=== PATIENT | male | born 1940 | race Caucasian/White ===

== ENCOUNTER 2024-06-05 10:29 | Outpatient (NON) | payer MEDICARE, SELFPAY ==
[2024-06-05 11:48] LABS: Anion Gap 12 mmol/L (4-12); Blood Urea Nitrogen 72 mg/dL (7-18); Calcium 8.7 mg/dL (8.5-10.1); Carbon Dioxide 36 mmol/L (21-32); Chloride 98 mmol/L (98-108); Cholesterol 68 mg/dL (0-200); Estimated Glomerular Filt Rate 28; Glucose 72 mg/dL (70-99); HDL Direct 22 mg/dL (40-60); LDL Cholesterol Calculated 34 mg/dL (<130); LDL Cholesterol Direct 37 mg/dL (0-130); Osmolality Calculated 322 mOsm/kg (285-295); Potassium 4.8 mmol/L (3.5-5.1); Sodium 146 mmol/L (136-145); Triglycerides 61 mg/dL (0-150)
--- OUTSIDE RECORDS SUMMARY | 2024-06-05 11:54 | XMS_ITS | Clinical Summary ---
Author Organization [facility] Address [address] [place] [address] Care Team Providers Care Autistic Teacher Name Role Phone Kartik Simons MD Primary Care Provider +- [phone] Saray Meneses ANP-BC Unavailable + Allergies No known active allergies Medications metoprolol succinate ER 25 MG 24 hr tablet Take 1 tablet (25 mg total) by mouth daily. 5 Active lovastatin 10 MG tablet Take 1 tablet (10 mg total) by mouth daily. Active metFORMIN 500 MG tablet Take 1 tablet (500 mg total) by mouth 2 (two) times daily with meals. Active albuterol sulfate HFA 108 (90 Base) MCG/ACT inhaler Inhale 2 puffs into the lungs every 4 (four) hours as needed for Wheezing. Active ipratropium-al buterol 20-100 MCG/ACT inhaler Inhale 1 puff into the lungs 4 (four) times daily. Please provide assembled. 4 g 2 Active potassium chloride CR 20 MEQ Tab CR tablet Take 2 tablets (40 mEq total) by mouth daily. Active traZODone (DESYREL) 50 MG tablet Take 1 tablet (50 mg total) by mouth nightly at bedtime. Active budesonide (PULMICORT) 0.5 MG/2ML nebulizer solution Take 2 mLs (0.5 mg total) by nebulization 2 (two) times daily. Active Simethicone ([employer] GAS RELIEF) 125 MG Cap Take 1 tablet by mouth 4 (four) times daily as needed (gas). Active furosemide (LASIX) 40 MG tablet Take 3 tablets (120 mg total) by mouth daily. 4 Active aspirin EC (ECOTRIN) 81 MG tablet Take 1 tablet (81 mg total) by mouth daily. Active hydrOXYzine (ATARAX) 25 MG tabletIndicati ons:Agitation associated with Dementia Take 1 tablet (25 mg total) by mouth every 8 (eight) hours as needed for Itching. Indications: Agitation associated with Dementia 30 tablet 5 05/16/19 25 polyethylene glycol (GLYCOLAX) packetIndicati ons:Constipati on Take 240 mLs (17 g total) by mouth daily as needed for Constipation. Indications: Constipation Dissolve powder in 240 mL water 14 each 5 05/20/19 25 Active Problems Problem Noted Date Diagnosed Date Hyperkalemia 04/28/2024 Dementia ([facility]) 04/28/2024 Chronic anemia 01/20/2024 Chronic respiratory failure ([facility]) Iron deficiency 01/18/2024 CHF (congestive heart failure) ([facility]) 01/16/2024 Anemia due to GI blood loss 01/16/2024 CATHERINE (obstructive sleep apnea) 02/15/2022 Mild concentric left ventricular hypertrophy (LV H) 02/15/2022 CHF (congestive heart failure) ([facility]) 09/16/2021 COPD exacerbation ([facility]) 08/16/2021 Pneumonia 05/25/2019 Rectal bleed 05/13/2019 Obese body habitus A-fib ([facility]) HLD (hyperlipidemia) HTN (hypertension) Resolved Problems Problem Noted Date Diagnosed Date Resolved Date Back pain 05/27/2019 05/29/2019 Overview (05/27/2019): He requests help with chronic low back pain Hypotension 05/16/2019 05/17/2019 Anemia due to GI blood loss 05/14/2019 01/20/2024 CAP (community acquired pneumonia) 05/14/2019 05/29/2019 CHF exacerbation ([facility]) 05/29/2019 Encounters Date Type Department Care Team Description 05/14/2024 10:42 AM COLLEGE TUTOR - 05/14/2024 11:59 PM COLLEGE TUTOR Hospital Encounter [facility] [address] [place] [address] Cindy Godoy PA Discharge Disposition: Home or Self Care (Routine Discharge) 05/14/2024 10:40 AM COLLEGE TUTOR - 05/14/2024 10:41 AM COLLEGE TUTOR Hospital Encounter [facility] [address] [place] [address] Cindy Godoy PA Discharge Disposition: Home or Self Care (Routine Discharge) 05/14/2024 Orders Only [facility] [address] [place] [address] Cindy Godoy PA 05/14/2024 Travel 05/01/2024 Travel 04/23/2024 Travel 04/21/2024 6:50 PM COLLEGE TUTOR - 05/06/2024 10:20 AM COLLEGE TUTOR Hospital Encounter [facility] [address] [place] [address] Cristine Wasserman MD Ishmael, Timothy L, MD Cochran, Apolinar El MD Flu Like Symptoms Discharge Disposition: [facility] Facility 04/21/2024 Travel from Last 3 Months Immunizations Name Administration Dates Next Due Afluria 36 MONTHS+ (Prefille d Syringe IIV4) 05/29/2019,05/14/2019(Deferred: Patient/family declined) Family History Medical History Relation Comments Diabetes Father Heart Disease Mother Relation Status Comments Father Mother Social History Tobacco Use Types Packs/Day Years Used Date Smoking Tobacco: Former Smokeless Tobacco: Former Chew Quit: 04/2021 Tobacco Cessation:Counseling Given: Not Answered Alcohol Use Standard Drinks/Week Comments No 0 (1 standard drink = 0.6 oz pur e alcohol) [facility] Utilities Answer Date Recorded In the past 12 months has e [employer], gas, oil, or water [employer] threatened to shut off services in your home? No 04/21/2024 Humiliation, Afraid, Rape, and Kick questionnair e Answer Date Recorded Within the last year, have y ou been afraid of your partner or ex-partner? No 04/21/2024 Within the last year, have y ou been humiliated or emotionally abused in other ways by your partner or ex-partner? No Within the last year, have y ou been kicked, hit, slapped, or otherwise physically hurt by your partner or ex-partner? No 04/21/2024 Within the last year, have y ou been raped or forced to have any kind of sexual activity by your partner or ex-partner? No 04/21/2024 AUDIT-C Answer Date Recorded Frequency of Alcohol Consumption Never 05/13/2019 Average Number of Drinks Not on file 020 Frequency of Binge Drinking Not on file 04/25 Overall Financial Resource Strain (CARDIA) Answe r Date Recorded How hard is it for you to pa y for the very basics like food, housing, medical care, and heating? Not hard at all 04/21/2024 Hunger Vital Sign Answer Date Recorded Within the past 12 months, y ou worried that your food would run out before you got the money to buy more. Never true 04/21/20 24 Within the past 12 months, t he food you bought just didn't last and you didn't have money to get more. Never true 04/21/2024 PRAPARE - Transportation Answer Date Re corded In the past 12 months, has l ack of transportation kept you from medical appointments or from getting medications? No 03/26 In the past 12 months, has l ack of transportation kept you from meetings, work, or from getting things needed for daily living? No 04/21/2024 Housing Stability Vital Sign Answer Eber e Recorded In the last 12 months, was t here a time when you were not able to pay the mortgage or rent on time? No 04/21/2024 In the past 12 months, how m any times have you moved where you were living? 1 04/21/2024 At any time in the past 12 m [facility], were you homeless or living in a [place] [facility] [place] facility (including now)? No 04/21/2024 Sex and Gender Information Value Date Recorded Sex Assigned at Male 05/14/2024 10:39 AM COLLEGE TUTOR Legal Sex Male 6:05 PM CDT Gender Identity Male 05/25/2019 4:09 PM COLLEGE TUTOR Sexual Orientation Not on file Last Filed Vital Signs Vital Sign Reading Time Taken Comments Blood Pressure 114/65 05/06/2024 8:15 AM COLLEGE TUTOR Pulse 79 05/06/2024 8:15 AM COLLEGE TUTOR Temperature 36.2 C (97.2 F) 05/06/2024 5:18 AM COLLEGE TUTOR Respiratory Rate 20 05/06/2024 5:18 AM COLLEGE TUTOR Oxygen Saturation 97% 05/06/2024 5:18 AM COLLEGE TUTOR Inhaled Oxygen Concentration - - Weight 126.1 kg (278 lb) 05/06/2024 5:18 AM COLLEGE TUTOR Height 175.3 cm (5' 9 ) 04/21/2024 6:53 PM COLLEGE TUTOR Body Mass Index 41.05 04/21/2024 6:53 PM COLLEGE TUTOR Plan of Treatment Upcoming Encounters Date Type Department Care Team (Late st Contact Info) Description 06/08/2024 10:00 AM COLLEGE TUTOR Appointment [facility] [address] [place] [address] Cindy Godoy PA [facility] [place] [address] Health Maintenance Due Date Last Done Comments Annual Medicare Wellness Visit 09/01/2004 RSV Immunization or 60+ Years (1 - 1-dose 75+ series) 09/01/2014 DTaP, Tdap and Td Vaccines (1 - Tdap) 09/09/2016 09/08/2016 Pneumococcal Vaccine: 65+ Years (2 of 2 - PCV) 05/13/2018 05/13/2017 Zoster Vaccines (2 of 2) 01/25/2022 11/30/2021 COVID-19 Vaccine ( season) 2023 10/12/2021, 07/24/2020, 06/26/2020 Influenza Adult (#1) 2024 02/02/2021, 03/11/2020, 05/29/2019, Additional history exists Meningococcal B Vaccine Aged Out No l onger eligible based on patient's age to complete this topic Meningococcal Vaccine Aged Out No mariana terrance eligible based on patient's age to complete this topic RSV Immunizations Under 20 Months Aged Out No longer eligible based on patient's age to complete this topic Goals Goal Patient Goal Type Associated Problems Recent Progress Patient-Stated? Author Safety Patient/family will have appropriate support at home upon discharge General Keisha Guajardo, SCHOOL SPEECH THERAPIST Procedures Procedure Name Priority Date/Time Associated Diagnosis Comments CBC W/DIFF AUTOMATED STAT 05/14/2024 11:30 AM COLLEGE TUTOR Swelling of both lower extremities BASIC METABOLIC PANEL STAT 05/14/2024 11:30 AM COLLEGE TUTOR Swelling of both lower extremities XR CHEST PA+LAT STAT 05/14/2024 11:00 AM COLLEGE TUTOR Pneumonia POCT GLUCOSE - LOYA DOCKED DEVICE Routine 05/06/2024 5:02 AM COLLEGE TUTOR COMPREHENSIVE METABOLIC PANEL Routine 05/06/2024 4:44 AM COLLEGE TUTOR CBC W/DIFF AUTOMATED Routine 05/06/2024 4:44 AM COLLEGE TUTOR POCT GLUCOSE - LOYA DOCKED DEVICE Routine 05/05/2024 4:33 PM COLLEGE TUTOR COMPREHENSIVE METABOLIC PANEL Routine 05/05/2024 4:34 AM COLLEGE TUTOR CBC W/DIFF AUTOMATED Routine 05/05/2024 4:34 AM COLLEGE TUTOR POCT GLUCOSE - LOYA DOCKED DEVICE Routine 05/05/2024 4:24 AM COLLEGE TUTOR POCT GLUCOSE - LOYA DOCKED DEVICE Routine 05/04/2024 4:42 PM COLLEGE TUTOR COMPREHENSIVE METABOLIC PANEL Routine 05/04/2024 5:26 AM COLLEGE TUTOR CBC W/DIFF AUTOMATED Routine 05/04/2024 5:26 AM COLLEGE TUTOR POCT GLUCOSE - LOYA DOCKED DEVICE Routine 05/03/2024 5:08 PM COLLEGE TUTOR POCT GLUCOSE - LOYA DOCKED DEVICE Routine 05/03/2024 6:05 AM COLLEGE TUTOR COMPREHENSIVE METABOLIC PANEL Routine 05/03/2024 5:17 AM COLLEGE TUTOR CBC W/DIFF AUTOMATED Routine 05/03/2024 5:17 AM COLLEGE TUTOR POCT GLUCOSE - LOYA DOCKED DEVICE Routine 05/02/2024 4:37 PM COLLEGE TUTOR COMPREHENSIVE METABOLIC PANEL Routine 05/02/2024 5:00 AM COLLEGE TUTOR CBC W/DIFF AUTOMATED Routine 05/02/2024 5:00 AM COLLEGE TUTOR POCT GLUCOSE - LOYA DOCKED DEVICE Routine 05/01/2024 4:15 PM COLLEGE TUTOR XR SPEECH SWALLOW SFL ONLY Today 05/01/2024 2:00 PM COLLEGE TUTOR COMPREHENSIVE METABOLIC PANEL Routine 05/01/2024 5:28 AM COLLEGE TUTOR CBC W/DIFF AUTOMATED Routine 05/01/2024 5:28 AM COLLEGE TUTOR POCT GLUCOSE - LOYA DOCKED DEVICE Routine 04/30/2024 4:31 PM COLLEGE TUTOR POCT GLUCOSE - LOYA DOCKED DEVICE Routine 04/30/2024 4:37 AM COLLEGE TUTOR COMPREHENSIVE METABOLIC PANEL Routine 04/30/2024 4:15 AM COLLEGE TUTOR CBC W/DIFF AUTOMATED Routine 04/30/2024 4:15 AM COLLEGE TUTOR POCT GLUCOSE - LOYA DOCKED DEVICE Routine 04/29/2024 4:48 PM COLLEGE TUTOR COMPREHENSIVE METABOLIC PANEL Routine 04/29/2024 4:45 AM COLLEGE TUTOR CBC W/DIFF AUTOMATED Routine 04/29/2024 4:45 AM COLLEGE TUTOR POCT GLUCOSE - LOYA DOCKED DEVICE Routine 04/29/2024 4:40 AM COLLEGE TUTOR POCT GLUCOSE - LOYA DOCKED DEVICE Routine 04/28/2024 4:[address] HEAD WO CON Today 04/28/2024 9:42 AM COLLEGE TUTOR COMPREHENSIVE METABOLIC PANEL Routine 04/28/2024 4:40 AM COLLEGE TUTOR CBC W/DIFF AUTOMATED Routine 04/28/2024 4:40 AM COLLEGE TUTOR POCT GLUCOSE - LOYA DOCKED DEVICE Routine 04/27/2024 4:55 PM COLLEGE TUTOR XR CHEST PA+LAT STAT 04/27/2024 9:34 AM COLLEGE TUTOR COMPREHENSIVE METABOLIC PANEL STAT 04/27/2024 8:49 AM COLLEGE TUTOR CBC W/DIFF AUTOMATED STAT 04/27/2024 8:49 AM COLLEGE TUTOR POCT GLUCOSE - LOYA DOCKED DEVICE Routine 04/27/2024 5:54 AM COLLEGE TUTOR POCT GLUCOSE - LOYA DOCKED DEVICE Routine 04/26/2024 4:19 PM COLLEGE TUTOR POCT GLUCOSE - LOYA DOCKED DEVICE Routine 04/25/2024 4:10 PM COLLEGE TUTOR COMPREHENSIVE METABOLIC PANEL Routine 04/25/2024 8:35 AM COLLEGE TUTOR CBC W/DIFF AUTOMATED Routine 04/25/2024 8:35 AM COLLEGE TUTOR POCT GLUCOSE - LOYA DOCKED DEVICE Routine 04/25/2024 8:09 AM COLLEGE TUTOR COMPREHENSIVE METABOLIC PANEL Routine 04/24/2024 5:14 AM COLLEGE TUTOR CBC W/DIFF AUTOMATED Routine 04/24/2024 5:14 AM COLLEGE TUTOR POCT GLUCOSE - LOYA DOCKED DEVICE Routine 04/23/2024 4:31 PM COLLEGE TUTOR COMPREHENSIVE METABOLIC PANEL Routine 04/23/2024 4:20 AM COLLEGE TUTOR CBC W/DIFF AUTOMATED Routine 04/23/2024 4:20 AM COLLEGE TUTOR POCT GLUCOSE - LOYA DOCKED DEVICE Routine 04/22/2024 4:[address] HEAD WO CON Today 04/22/2024 3:46 PM COLLEGE TUTOR POCT GLUCOSE - LOYA DOCKED DEVICE Routine 04/22/2024 2:[address] CHEST WO CON Today 04/22/2024 11:45 AM COLLEGE TUTOR CBC W/DIFF AUTOMATED Routine 04/22/2024 8:16 AM COLLEGE TUTOR COMPREHENSIVE METABOLIC PANEL Routine 04/22/2024 8:16 AM COLLEGE TUTOR LACTIC ACID W REFLEX (SEPSIS) TIMED 04/21/2024 9:15 PM COLLEGE TUTOR XR CHEST PORTABLE STAT 04/21/2024 7:2 9 PM COLLEGE TUTOR ECG 12-LEAD Routine 04/21/2024 7:24 PM COLLEGE TUTOR CULTURE, BACTERIA, BLOOD STAT 04/21/2024 7:10 PM COLLEGE TUTOR PRO-BRAIN NATRIURETIC PEPTIDE STAT 04/21/2024 7:10 PM COLLEGE TUTOR LACTIC ACID W REFLEX (SEPSIS) STAT 04/21/2024 7:10 PM COLLEGE TUTOR TROPONIN, QUANT STAT 04/21/2024 7:10 PM COLLEGE TUTOR COMPREHENSIVE METABOLIC PANEL STAT 04/21/2024 7:10 PM COLLEGE TUTOR CBC W/DIFF AUTOMATED STAT 04/21/2024 7:10 PM COLLEGE TUTOR INFLUENZA A & B STAT 04/21/2024 7:05 PM COLLEGE TUTOR CORONAVIRUS (COVID-19) ANTIGEN STAT 04/21/2024 7:05 PM COLLEGE TUTOR from Last 3 Months Results * (ABNORMAL) BASIC METABOLIC PANEL (05/14/2024 11:30 AM COLLEGE TUTOR) SODIUM S/P/B 141 136 - 145 MMOL/L 05/14/2024 11:45 AM [facility] POTASSIUM S/P/B 5.0 3.5 - 5.1 MMOL/L 05/14/2024 11:45 AM [facility] CHLORIDE S/P/B 101 98 - 107 MMOL/L 05/14/2024 11:45 AM [facility] CO2 32.4(H) 21.0 - 32.0 MMOL/L 05/14/2024 11:45 AM [facility] GLUCOSE 98 70 - 99 MG/DL 05/14/2024 11:45 AM [facility] Comment: FASTING GLUCOSE 100 TO 125 MG/DL IS CONSISTENT WITH IMPAIRED FASTING GLUCOSE. FASTING GLUCOSE >125 MG/DL IS CONSISTENT WITH DIABETES. RANDOM GLUCOSE >200 MG/DL WITH HYPERGLYCEMIC SYMPTOMS IS CONSISTENT WITH DIABETES. PER ADA GUIDELINES BUN 31(H) 6 - 24 MG/DL 05/14/2024 11:45 AM [facility] CREATININE S/P/B 1.39(H) 0.70 - 1.30 MG/DL 05/14/2024 11:45 AM [facility] CALCIUM S/P/B 8.4 8.4 - 10.5 MG/DL 05/14/2024 11:45 AM [facility] ANION GAP 7.6 5.0 - 15.0 MMOL/L 05/14/2024 11:45 AM [facility] OSMOLALITY (CALC) 299 MOSM/KG 025 11:45 AM [facility] Comment:REFERENCE RANGE NOT ESTABLISHED GFR ESTIMATE 50(L) >89 ML/MIN/1. 73 M2 05/14/2024 11:45 AM [facility] GFR NOTES GFR REFERENCE S: 05/14/2024 11:45 AM [facility] Comment: THE ESTIMATED GFR IS CALCULATED USING THE 2020 CKD-EPI EQUATION. THE FOLLOWING CATEGORIES FOR GRADING RENAL FUNCTION ARE RECOMMENDED BY THE INTERNATIONAL SOCIETY OF NEPHROLOGY (KDIGO 2012 CLINICAL PRACTICE GUIDELINE). G1,NORMAL OR HIGH: >89 ml/min/1.73 m2 G2,MILDLY DECREASED: 60-89 ml/min/1.73 m2 G3A,MILDLY TO MODERATELY DECREASED: 45-59 ml/min/1.73 m2 G3B,MODERATELY TO SEVERELY DECREASED: 30-44 ml/min/1.73 m2 G4,SEVERELY DECREASED: 15-29 ml/min/1.73 m2 G5,KIDNEY FAILURE: <15 ml/min/1.73 m2 05/14/2024 11:3 0 AM COLLEGE TUTOR [facility] S[facility]ERS [facility] Final Resu lt [facility] [address] [place] [address], * (ABNORMAL) CBC W/DIFF AUTOMATED (05/14/2024 11:30 AM COLLEGE TUTOR) Only the most recent of16 resultswithin the time period is included. WBC 8.77 4.00 - 10.80 x10'3/uL 05/14/2024 11:52 AM COLLEGE TUTOR [facility] RBC 4.72 4.50 - 6.10 x10'6/uL 05/14/2024 11:52 AM COLLEGE TUTOR [facility] HGB 10.4(L) 13.0 - 18.0 G/DL 05/14/2024 11:52 AM COLLEGE TUTOR [facility] HCT 36.4(L) 37.0 - 52.0 % 05/14/2024 11:52 AM COLLEGE TUTOR [facility] MCV 77.1(L) 78.0 - 100.0 FL 05/14/2024 11:52 AM COLLEGE TUTOR [facility] MCH 22.0(L) 27.0 - 31.0 PG 05/14/2024 11:52 AM COLLEGE TUTOR [facility] MCHC 28.6(L) 33.0 - 36.0 G/DL 05/14/2024 11:52 AM [facility] RDW 22.5(H) 11.5 - 14.5 % 05/14/2024 11:52 AM [facility] PLT 249 150 - 350 x10'3/uL 05/14/2024 11:52 AM [facility] MPV 10.1 7.4 - 10.4 FL 05/14/2024 11:52 AM [facility] CBC COMMENT NORMAL REFERENCE RANGE NOT ESTABLISHED FOR THE PROPORTIONAL LEUKOCYTE DIFFERENTIAL. 05/14/2024 11:52 AM [facility] NEUTROPHILS % 67.4 % 05/14/2024 12:12 PM [facility] LYMPHOCYTES % 16.6 % 05/14/2024 12:12 PM [facility] MONOCYTES % 11.4 % 05/14/2024 12:12 PM [facility] EOSINOPHILS % 3.6 % 05/14/2024 12:12 PM [facility] BASOPHILS % 0.7 % 05/14/2024 12:12 PM [facility] IMMATURE GRANS % 0.3 % 05/14/19 12:12 PM [facility] NRBC % 0.0 % 05/14/2024 12:12 PM [facility] ABS. NEUTROPHILS 5.90 1.60 - 8.30 x10'3/uL 05/14/2024 12:12 PM [facility] ABS. LYMPHOCYTES 1.46 0.80 - 4.70 x10'3/uL 05/14/2024 12:12 PM [facility] ABS. MONOCYTES 1.00 0.00 - 1.50 x10'3/uL 05/14/2024 12:12 PM [facility] ABS. EOSINOPHILS 0.32 0.00 - 0.40 x10'3/uL 05/14/2024 12:12 PM [facility] ABS. BASOPHILS 0.06 0.00 - 0.20 x10'3/uL 05/14/2024 12:12 PM [facility] ABS. IMMATURE GRANULOCYTES 0.03 0.00 - 0.03 x10'3/uL 05/14/2024 12:12 PM COLLEGE TUTOR [facility] ABS. NUCLEATED RBC'S 0.00 0.00 - 0.01 x10'3/uL 05/14/2024 12:12 PM COLLEGE TUTOR [facility] PLT MORPH. NORMAL 05/14/2024 12:12 PM COLLEGE TUTOR [facility] RBC MORPHOLOGY 2+ 05/14/2024 12:12 PM COLLEGE TUTOR [facility] Comment: ANISOCYTOSIS 1+ HYPOCHROMASIA 1+ POIKILOCYTOSIS 05/14/2024 11:3 0 AM COLLEGE TUTOR us Cindy Godoy PA LABORATORY Final Resu lt [facility] [address] [facility] [place] [address], * XR CHEST PA+LAT (05/14/2024 11:00 AM COLLEGE TUTOR) Only the most recent of2 resultswithin the time period is included. Anatomical Region Laterality Modality Chest Radiographic Riri ging 05/14/2024 11:0 2 AM COLLEGE TUTOR Impressions 05/14/2024 11:11 AM COLLEGE TUTOR IMPRESSION: Stable chest. Ordered By: CINDY GODOY Interpreted By: Brant Gamez MD, 05/14/2024 11:02 AM Narrative 05/14/2024 11:11 AM COLLEGE TUTOR [facility] [address] [place] [address] Examination: Two-view chest Exam time: 1038 hours. Clinical history: Follow-up of abnormal chest x-ray. Comparison: 04/27/2024; CT of the chest, 04/22/2024. Technique: AP and lateral views Findings: Allowing for differences in projection and rotation, the cardiomediastinal silhouette is stable. The heart remains enlarged. Pulmonary vascularity appears within normal limits. Retrocardiac left lower lobe infiltrate and masslike opacity in the right upper lobe are not appreciably changed once technical differences are taken into account. There is no gross consolidation. No significant pleural effusion. The bony thorax is stable. Procedure Note Brant Gamez MD - 05/14/[address] [place] [address] Examination: Two-view chest Exam time: 1038 hours. Clinical history: Follow-up of abnormal chest x-ray. Comparison: 04/27/2024; CT of the chest, 04/22/2024. Technique: AP and lateral views Findings: Allowing for differences in projection and rotation, thecardiomediastinal silhouette is stable. The heart remains enlarged.Pulmonary vascularity appears within normal limits. Retrocardiac leftlower lobe infiltrate and masslike opacity in the right upper lobe are notappreciably changed once technical differences are taken into account.There is no gross consolidation. No significant pleural effusion. The bonythorax is stable. IMPRESSION: Stable chest. Ordered By: CINDY GODOY Interpreted By: Brant Gamez MD, 05/14/2024 11:02 AM Cindy Godoy [facility] Final Resu lt * POCT glucose (05/06/2024 5:02 AM COLLEGE TUTOR) Only the most recent of21 resultswithin the time period is included. GLUCOSE POC 92 70 - 99 MG/DL 05/06/2024 5:04 AM COLLEGE TUTOR [facility] Comment:Treatment Given 05/06/2024 5:02 AM COLLEGE TUTOR Apolinar Landis MD POCT ORDERABLES - DEVICE Karly l Result [facility] [address] [place] [address], * (ABNORMAL) COMPREHENSIVE METABOLIC PANEL (05/06/2024 4:44 AM COLLEGE TUTOR) Only the most recent of15 resultswithin the time period is included. SODIUM S/P/B 144 136 - 145 MMOL/L 05/06/2024 5:26 AM [facility] POTASSIUM S/P/B 3.3(L) 3.5 - 5.1 MMOL/L 05/06/2024 5:26 AM [facility] CHLORIDE S/P/B 104 98 - 107 MMOL/L 05/06/2024 5:26 AM [facility] CO2 31.7 21.0 - 32.0 MMOL/L 05/06/2024 5:26 AM [facility] GLUCOSE 75 70 - 99 MG/DL 05/06/2024 5:26 AM [facility] Comment: FASTING GLUCOSE 100 TO 125 MG/DL IS CONSISTENT WITH IMPAIRED FASTING GLUCOSE. FASTING GLUCOSE >125 MG/DL IS CONSISTENT WITH DIABETES. RANDOM GLUCOSE >200 MG/DL WITH HYPERGLYCEMIC SYMPTOMS IS CONSISTENT WITH DIABETES. PER ADA GUIDELINES BUN 26(H) 6 - 24 MG/DL 05/06/2024 5:26 AM [facility] CREATININE S/P/B 1.11 0.70 - 1.30 MG/DL 05/06/2024 5:26 AM [facility] CALCIUM S/P/B 8.4 8.4 - 10.5 MG/DL 05/06/2024 5:26 AM [facility] BILIRUBIN TOTAL S/P/B 1.2(H) 0.2 - 1.0 MG/DL 05/06/2024 5:26 AM [facility] Comment: THIS ASSAY IS NOT RECOMMENDED FOR PATIENTS UNDERGOING TREATMENT WITH ELTROMBOPAG DUE TO THE POTENTIAL FOR FALSELY ELEVATED RESULTS. ALKALINE PHOSPHATASE S/P/B 124(H) 45 - 115 U/L 05/06/2024 5:26 AM [facility] AST 15 15 - 37 U/L 05/06/2024 5:26 AM [facility] ALT 13(L) 16 - 63 U/L 05/06/2024 5:26 AM [facility] TOTAL PROTEIN S/P/B 6.5 6.4 - 8.2 G/DL 05/06/2024 5:26 AM [facility] ALBUMIN S/P/B 2.6(L) 3.4 - 5.0 G/DL 05/06/2024 5:26 AM [employer] [facility] ANION GAP 8.3 5.0 - 15.0 MMOL/L 05/06/2024 5:26 AM [facility] OSMOLALITY (CALC) 301 MOSM/KG 025 5:26 AM [facility] Comment:REFERENCE RANGE NOT ESTABLISHED GFR ESTIMATE 65(L) >89 ML/MIN/1. 73 M2 05/06/2024 5:26 AM [facility] GFR NOTES GFR REFERENCE S: 05/06/2024 5:26 AM [facility] Comment: THE ESTIMATED GFR IS CALCULATED USING THE 2020 CKD-EPI EQUATION. THE FOLLOWING CATEGORIES FOR GRADING RENAL FUNCTION ARE RECOMMENDED BY THE [employer] OF NEPHROLOG[employer] (KDIGO 2012 CLINICAL PRACTICE GUIDELINE). G1,NORMAL OR HIGH: >89 ml/min/1.73 m2 G2,MILDLY DECREASED: 60-89 ml/min/1.73 m2 G3A,MILDLY TO MODERATELY DECREASED: 45-59 ml/min/1.73 m2 G3B,MODERATELY TO SEVERELY DECREASED: 30-44 ml/min/1.73 m2 G4,SEVERELY DECREASED: 15-29 ml/min/1.73 m2 G5,KIDNEY FAILURE: <15 ml/min/1.73 m2 05/06/2024 4:44 AM [employer] Piyush Ramirez NP LABORATORY Final Result [facility] [address] [place] [address], * XR SPEECH SWALLOW SFL ONLY (05/01/2024 2:00 PM [employer]) Anatomical Region Laterality Modality NA Radiographic Riri ging, Radiographic Imaging 05/01/2024 2:08 PM COLLEGE TUTOR Impressions 05/01/2024 2:13 PM COLLEGE TUTOR IMPRESSION: Swallowing dysfunction as described. Please reference the speech pathologist report for complete details. Ordered By: PIYUSH RAMIREZ Interpreted By: Brant Gamez MD, 05/01/2024 2:08 PM Narrative 05/01/2024 2:13 PM COLLEGE TUTOR [address] [place] [address] Examination: Video esophagogram. Exam time: 1350 hours. Clinical history: Dysphagia. Comparison: None. Technique: Fluoroscopic monitoring at the direction of the speech pathologist. 2.9 minutes of fluoroscopy time was used. Seven cine series were captured for review. Findings: The patient was offered liquids, paste, MM5 and solids sequentially at the direction of the speech pathologist. No nasopharyngeal reflux was observed. Swallowing of liquids proceeded rapidly without incident. With paste and MM5 consistencies there was some delay in triggering the swallow with premature spillage to the vallecula. Once triggered, the swallow proceeded rapidly and without incident. With solids, there was difficulty with bolus control and formation and triggering of the swallow. The patient requested and received thin liquids to serve as a wash. While rapidly swallowing large boluses of the thin liquids, aspiration was observed which triggered a prompt cough reflex. Procedure Note Brant Gamez MD - 05/01/[address] [place] [address] Examination: Video esophagogram. Exam time: 1350 hours. Clinical history: Dysphagia. Comparison: None. Technique: Fluoroscopic monitoring at the direction of the speechpathologist. 2.9 minutes of fluoroscopy time was used. Seven cine serieswere captured for review. Findings: The patient was offered liquids, paste, MM5 and solidssequentially at the direction of the speech pathologist. No nasopharyngealreflux was observed. Swallowing of liquids proceeded rapidly withoutincident. With paste and MM5 consistencies there was some delay intriggering the swallow with premature spillage to the vallecula. Oncetriggered, the swallow proceeded rapidly and without incident. Withsolids, there was difficulty with bolus control and formation andtriggering of the swallow. The patient requested and received thin liquidsto serve as a wash. While rapidly swallowing large boluses of the thinliquids, aspiration was observed which triggered a prompt cough reflex. IMPRESSION: Swallowing dysfunction as described. Please reference the speechpathologist report for complete details. Ordered By: PIYUSH RAMIREZ Interpreted By: Brant Gamez MD, 05/01/2024 2:08 PM us Piyush Ramirez BEEF SPLITTER FLUOROSCOPY Final Result * CT HEAD WO CON (04/28/2024 9:42 AM COLLEGE TUTOR) Only the most recent of2 resultswithin the time period is included. Anatomical Region Laterality Modality Head Computed Tomogra phy 04/28/2024 9:46 AM COLLEGE TUTOR Impressions 04/28/2024 10:08 AM COLLEGE TUTOR IMPRESSION: 1. No visible acute intracranial abnormalities. 2. Generalized cerebral atrophy. Chronic small vessel ischemic changes. 3. Bilateral maxillary and ethmoid sinusitis. Referred By: Interpreted By: Kiko Nava DO, 04/28/2024 9:46 AM Narrative 04/28/2024 10:08 AM COLLEGE TUTOR [address] [place] [address] EXAMINATION: CT head without contrast HISTORY: Altered mental status. COMPARISON: CT head 04/22/2024. TECHNIQUE: Axial CT images of the head without the use of intravenous contrast. A dose lowering technique was used for this procedure, which may include, but is not limited to, dose reduction technique, automated exposure control, the use of degenerative reconstruction, and ALARA/image gently techniques. FINDINGS: There is significant motion artifact which limits detailed evaluation. Repeat imaging was performed. Best images possible. No visible acute intracranial hemorrhage, edema, or mass effect. No midline shift. No evidence of subdural or epidural hematoma. No hydrocephalus. There is generalized cerebral atrophy. There are scattered chronic small vessel ischemic changes within the bilateral white matter. There are choroid plexus and pineal gland calcifications. No visible acute findings. Once again, detailed evaluation is significantly limited related to severe motion artifact. No acute appearing orbital abnormalities. There is bilateral maxillary sinusitis. There is ethmoid sinusitis. The mastoid air cells are clear. No acute osseous abnormalities are identified. Procedure Note Kiko Nava DO - 04/28/2024 [facility] [address] [place] [address] EXAMINATION: CT head without contrast HISTORY: Altered mental status. COMPARISON: CT head 04/22/2024. TECHNIQUE: Axial CT images of the head without the use of intravenous contrast. A dose lowering technique was used for this procedure, which may include,but is not limited to, dose reduction technique, automated exposurecontrol, the use of degenerative reconstruction, and ALARA/image gentlytechniques. FINDINGS: There is significant motion artifact which limits detailed evaluation.Repeat imaging was performed. Best images possible. No visible acute intracranial hemorrhage, edema, or mass effect. Nomidline shift. No evidence of subdural or epidural hematoma. Nohydrocephalus. There is generalized cerebral atrophy. There arescattered chronic small vessel ischemic changes within the bilateral whitematter. There are choroid plexus and pineal gland calcifications. Novisible acute findings. Once again, detailed evaluation is significantlylimited related to severe motion artifact. No acute appearing orbitalabnormalities. There is bilateral maxillary sinusitis. There is ethmoidsinusitis. The mastoid air cells are clear. No acute osseousabnormalities are identified. IMPRESSION: 1. No visible acute intracranial abnormalities. 2. Generalized cerebral atrophy. Chronic small vessel ischemic changes. 3. Bilateral maxillary and ethmoid sinusitis. Referred By: Interpreted By: Kiko Nava DO, 04/28/2024 9:46 AM Saray Meneses [facility] CT Final Res ult * CT CHEST WO CON (04/22/2024 11:45 AM COLLEGE TUTOR) Anatomical Region Laterality Modality Chest Computed Tomogra phy 04/22/2024 12:0 0 PM COLLEGE TUTOR Impressions 04/22/2024 12:30 PM COLLEGE TUTOR IMPRESSION: 1. Interval progressive indeterminant heterogeneous RUL lung mass lesion with slight interval enlargement and new/progressive associated findings as detailed above. Malignancy needs to be excluded given persistence and overall appearance as well as suspicious progressive change. Strongly recommend PET evaluation of the initial first step to further characterize and also strongly consider tissue sampling as well for definitive histologic diagnosis. 2. New areas of consolidation/groundglass opacities in the LLL. It is unclear whether this represents airspace disease given its appearance. Post obstructive etiologies are not excluded. Aspiration related to sequelae could have similar appearance as well. Recommend clinical correlation and consider immediate initiation of targeted treatment if indicated. Recommend attention at time of PET evaluation for higher level imaging evaluation as well. 3. Interval increasing small right pleural effusion. Trace left pleural fluid potentially. 4. Incidental heterogeneous indeterminant right thyroid lesion. Limited evaluation of this by CT. 5. Significant atherosclerotic disease. 6. Additional incidental, nonurgent, stable and chronic findings as detailed above. Ordered By: PIYUSH RAMIREZ Interpreted By: Ann Grant MD, 04/22/2024 12:00 PM Narrative 04/22/2024 12:30 PM COLLEGE TUTOR [address] [place] [address] EXAM: CT THORAX WITHOUT CONTRAST Exam Date: 04/21/2024 6:50 PM INDICATION: Indeterminant right para hilar opacity on recent CXR. Shortness of breath. TECHNIQUE: Contiguous unenhanced axial slices as per department protocol were obtained through the thorax . Coronal and sagittal reformats were submitted for review. A dose lowering technique was utilized for this procedure which may include but is not limited to dose reduction techniques, automated exposure control, and/or the use of iterative reconstruction in accordance with ALARA principle. COMPARISON: CXR 04/13/2024. Selective images and report CT chest 01/16/2024. FINDINGS: Compromised evaluation of fine detail due to presence of some motion artifact as well as non-IV contrast evaluation. Within study constraints following noted: LUNGS/TRACHEOBRONCHIAL TREE: Previously described heterogeneous consolidative lesion epicenter in the central RUL is redemonstrated. 1 again with lobulated margins in the areas of internal air density noted. Some interval new and progressive surrounding clustered groundglass opacity and interstitial thickening/linear densities noted. On the current exam this spans at least 4.8 cm transverse, 4.8 cm AP, 5.4 cm longitudinal/oblique orientation. A few tiny scattered calcified lung nodules are noted. Interval increasing small right pleural effusion. Trace left pleural fluid may be present. New area of LLL airspace consolidation with surrounding groundglass opacities posteriorly. Superimposed bronchi in this region is obscured and/or compressed. Underlying bronchial wall thickening may be present. A few additional stable and/or progressive scattered bilateral pulmonary linear densities and ground glass opacities throughout. No dominant endobronchial lesion in the trachea or bilateral mainstem bronchi. MEDIASTINUM/SALONI: Limited evaluation of mediastinal and hilar contents due to lack of IV contrast. Some calcified right hilar and mediastinal lymph nodes redemonstrated. Stable appearance of the thyroid gland which appears atrophic. With dominant heterogeneous right thyroid lobe lesion again noted. Limited evaluation of this on this nondedicated study. Stable cardiomegaly. Redemonstrated significant calcified coronary atherosclerotic plaque. Stable focal small amount of mediastinal fluid. Redemonstrated extensive calcified atherosclerotic plaque in the visualized aorta. Limited evaluation of the aorta on this nondedicated study especially abdominal aorta with mesenteric partial imaged intraluminal calcification noted best seen series 2 images 122 through 126. UPPER ABDOMEN/SOFT TISSUES/OSSEOUS: Partially imaged RUQ surgical clips. Partially imaged fat-containing mass with calcification in the right adrenal gland, most compatible with adrenal myelolipoma. Stable nonspecific nodular thickening of the left adrenal gland. Partially imaged pancreatic atrophy/involutional changes. Limited evaluation of the partially imaged abdomen on this nondedicated study. Redemonstrated bilateral gynecomastia. Osseous degenerative changes. Bony fusion of the thoracic spine. Procedure Note Ann Grant MD - 04/22/2024 [place] [id number] [place] [address] EXAM: CT THORAX WITHOUT CONTRAST Exam Date: 04/21/2024 6:50 PM INDICATION: Indeterminant right para hilar opacity on recent CXR.Shortness of breath. TECHNIQUE: Contiguous unenhanced axial slices as per department protocolwere obtained through the thorax . Coronal and sagittal reformats weresubmitted for review. A dose lowering technique was utilized for thisprocedure which may include but is not limited to dose reductiontechniques, automated exposure control, and/or the use of iterativereconstruction in accordance with ALARA principle. COMPARISON: CXR 04/13/2024. Selective images and report CT chest01/16/2024. FINDINGS: Compromised evaluation of fine detail due to presence of some motionartifact as well as non-IV contrast evaluation. Within study constraintsfollowing noted: LUNGS/TRACHEOBRONCHIAL TREE: Previously described heterogeneousconsolidative lesion epicenter in the central RUL is redemonstrated. 1again with lobulated margins in the areas of internal air density noted.Some interval new and progressive surrounding clustered groundglassopacity and interstitial thickening/linear densities noted. On the current exam this spans at least 4.8 cm transverse, 4.8 cm AP, 5.4cm longitudinal/oblique orientation. A few tiny scattered calcified lung nodules are noted. Interval increasingsmall right pleural effusion. Trace left pleural fluid may be present. New area of LLL airspace consolidation with surrounding groundglassopacities posteriorly. Superimposed bronchi in this region is obscuredand/or compressed. Underlying bronchial wall thickening may be present. A few additional stable and/or progressive scattered bilateral pulmonarylinear densities and ground glass opacities throughout. No dominant endobronchial lesion in the trachea or bilateral mainstembronchi. MEDIASTINUM/SALONI: Limited evaluation of mediastinal and hilar contents dueto lack of IV contrast. Some calcified right hilar and mediastinal lymph nodes redemonstrated. Stable appearance of the thyroid gland which appears atrophic. Withdominant heterogeneous right thyroid lobe lesion again noted. Limitedevaluation of this on this nondedicated study. Stable cardiomegaly. Redemonstrated significant calcified coronaryatherosclerotic plaque. Stable focal small amount of mediastinal fluid.Redemonstrated extensive calcified atherosclerotic plaque in thevisualized aorta. Limited evaluation of the aorta on this nondedicatedstudy especially abdominal aorta with mesenteric partial imagedintraluminal calcification noted best seen series 2 images 122 [id number]. UPPER ABDOMEN/SOFT TISSUES/OSSEOUS: Partially imaged RUQ surgical clips.Partially imaged fat-containing mass with calcification in the rightadrenal gland, most compatible with adrenal myelolipoma. Stablenonspecific nodular thickening of the left adrenal gland. Partially imagedpancreatic atrophy/involutional changes. Limited evaluation of the partially imaged abdomen on this nondedicatedstudy. Redemonstrated bilateral gynecomastia. Osseous degenerative changes. Bonyfusion of the thoracic spine. IMPRESSION: 1. Interval progressive indeterminant heterogeneous RUL lung mass lesionwith slight interval enlargement and new/progressive associated findingsas detailed above. Malignancy needs to be excluded given persistence and overall appearanceas well as suspicious progressive change. Strongly recommend PET evaluation of the initial first step to furthercharacterize and also strongly consider tissue sampling as well fordefinitive histologic diagnosis. 2. New areas of consolidation/groundglass opacities in the LLL. It is unclear whether this represents airspace disease given itsappearance. Post obstructive etiologies are not excluded. Aspiration related to sequelae could have similar appearance as well. Recommend clinical correlation and consider immediate initiation oftargeted treatment if indicated. Recommend attention at time of PET evaluation for higher level imagingevaluation as well. 3. Interval increasing small right pleural effusion. Trace left pleuralfluid potentially. 4. Incidental heterogeneous indeterminant right thyroid lesion. Limited evaluation of this by CT. 5. Significant atherosclerotic disease. 6. Additional incidental, nonurgent, stable and chronic findings asdetailed above. Ordered By: PIYUSH RAMIREZ Interpreted By: Ann Grant MD, 04/22/2024 12:00 PM us Piyush Ramirez BEEF SPLITTER CT Final Result * LACTIC ACID W REFLEX (SEPSIS) (04/21/2024 9:15 PM COLLEGE TUTOR) Only the most recent of2 resultswithin the time period is included. LACTIC ACID VENOUS 1.7 0.4 - 2.0 MMOL/L 04/21/2024 9:40 PM COLLEGE TUTOR [facility] 04/21/2024 9:15 PM COLLEGE TUTOR Cristine Wasserman MD LABORATORY Final Result [facility] [address] [place] [address], * XR CHEST PORTABLE (04/21/2024 7:29 PM COLLEGE TUTOR) Anatomical Region Laterality Modality Chest Radiographic Riri ging 04/21/2024 7:37 PM COLLEGE TUTOR Impressions 04/21/2024 7:45 PM COLLEGE TUTOR Impression: Stable chest with indeterminate/suspicious right lung opacity, as above. Referred By: Interpreted By: Christoph Barnhart MD, 04/21/2024 7:37 PM Narrative 04/21/2024 7:45 PM COLLEGE TUTOR [address] [place] [address] Examination: Chest 1 view portable History: Shortness of breath DATE/TIME: 04/21/2024 7:00 PM Comparison: 01/16/2024, CT and x-ray Technique: AP upright portable view of the chest was obtained. Findings: There is persistent abnormal right perihilar lung opacity, better evaluated on prior CT and indeterminate, malignancy to be excluded. Recommend further workup as on the prior CT report, for example tissue sampling or PET/CT. Left lung is clear. No pleural effusion or pneumothorax. Are size is stable and mildly enlarged. No acute osseous abnormality. Procedure Note Christoph Barnhart MD - 04/21/[address] [place] [address] Examination: Chest 1 view portable History: Shortness of breath DATE/TIME: 04/21/2024 7:00 PM Comparison: 01/16/2024, CT and x-ray Technique: AP upright portable view of the chest was obtained. Findings: There is persistent abnormal right perihilar lung opacity,better evaluated on prior CT and indeterminate, malignancy to be excluded.Recommend further workup as on the prior CT report, for example tissuesampling or PET/CT. Left lung is clear. No pleural effusion orpneumothorax. Are size is stable and mildly enlarged. No acute osseousabnormality. Impression: Stable chest with indeterminate/suspicious right lung opacity, as above. Referred By: Interpreted By: Christoph Barnhart MD, 04/21/2024 7:37 PM us Cristine Wasserman MD GENERAL IMAGING Final Result * ECG 12 lead (04/21/2024 7:24 PM COLLEGE TUTOR) 04/21/2024 7:24 PM COLLEGE TUTOR Narrative [facility] - 04/22/2024 10:46 AM COLLEGE TUTOR [address] 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1940 Requested By: CRISTINE WASSERMAN Order Number: [id number] Reading MD: Markus Batres Measurements Intervals [place]ill Rate: 142 P: IA: 0 QRS: 185 QRSD: 169 T: 138 QT: 340 QTc: 523 Interpretive Statements Probably atrial fibrillation RIGHT AXIS DEVIATION RIGHT BUNDLE BRANCH BLOCK POSSIBLE ANTERIOR MYOCARDIAL INFARCTION , OF INDETERMINATE AGE INFERIOR MYOCARDIAL INFARCTION , OF INDETERMINATE AGE MODERATE T-WAVE ABNORMALITY, CONSIDER LATERAL ISCHEMIA Baseline artifact EGE TUTOR Cristine Wasserman MD ECG ORDERABLES Final Result Performing Organization Address City/[facility]/ZIP Co de Phone Number [facility] * (ABNORMAL) PRO-BRAIN NATRIURETIC PEPTIDE (04/21/2024 7:10 PM COLLEGE TUTOR) PRO-B TYPE NATRIURETIC PEPTIDE 1,957(H) <450 PG/ML 04/21/2024 7:54 PM COLLEGE TUTOR [facility] Comment: CUT POINTS ESTABLISHED BY [employer] ON NT PROBNP (ICON) STUDY (2006). AGE INDEPENDENT: <300 PG/ML HAS A 99% NEGATIVE PREDICTIVE VALUE FOR EXCLUDING ACUTE CHF <50 YEARS: >450 PG/ML IS CONSISTENT WITH ACUTE CHF 50-75 YEARS: >900 PG/ML IS CONSISTENT WITH ACUTE CHF >75 YEARS: >1800 PG/ML IS CONSISTENT WITH ACUTE CHF IN PATIENTS WITH RENAL INSUFFICIENCY (GFR <60), >1200 PG/ML YIELDS A DIAGNOSTIC SENSITIVITY AND SPECIFICITY OF 89% AND 72% FOR ACUTE CHF. 04/21/2024 7:10 PM COLLEGE TUTOR Cristine Wasserman MD LABORATORY Final Result [facility] [place] [address], * BLOOD CULTURE #1 (04/21/2024 7:10 PM COLLEGE TUTOR) SPEC DESCRIPTION BLOOD 04/21/2024 6:59 PM COLLEGE TUTOR [facility] SPECIAL REQUESTS NO SPECIAL REQUEST 04/21/2024 6:59 PM COLLEGE TUTOR [facility] CULTURE RESULT NO GROWTH 5 DAYS 04/26/2024 11:51 AM COLLEGE TUTOR [facility] BLOOD SPECIMEN OBTAINED FOR BLOOD CULTURE / Unknown 04/21/2024 7:10 PM COLLEGE TUTOR 04/21/2024 7:26 PM COLLEGE TUTOR us Cristine Wasserman MD MICROBIOLOGY - GENERAL ORDERABL ES Final Result Performing Organization Address [facility]/ZIP Co de Phone Number [facility] [address] [place] [address], * TROPONIN, QUANT (04/21/2024 7:10 PM COLLEGE TUTOR) TROPONIN I HIGH SENSITIVITY 29 0 - 76 ng/L 04/21/2024 7:54 PM COLLEGE TUTOR [facility] 04/21/2024 7:10 PM COLLEGE TUTOR us Cristine Wasserman MD LABORATORY Final Result Performing Organization Address [facility] de Phone Number [facility] [address] [place] [address], [place] [phone] * CORONAVIRUS (COVID-19) ANTIGEN (04/21/2024 7:05 PM COLLEGE TUTOR) CORONAVIRUS ANTIGEN IA NEGATIVE NEGATIVE 04/21/2024 7:54 PM COLLEGE TUTOR [facility] Comment: NEGATIVE RESULTS DO NOT RULE OUT SARS-COV-2 INFECTION AND SHOULD NOT BE USED THE SOLE BASIS FOR TREATMENT OR PATIENT MANAGEMENT DECISIONS, INCLUDING INFECTION CONTROL DECISIONS. NEGATIVE RESULTS SHOULD BE CONSIDERED IN THE CONTEXT OF A PATIENT'S RECENT EXPOSURES, HISTORY AND THE PRESENCE OF CLINICAL SIGNS AND SYMPTOMS CONSISTENT WITH COVID 19. THIS TEST HAS BEEN AUTHORIZED BY THE FDA UNDER AN EMERGENCY USE AUTHORIZATION (EUA) FOR USE BY AUTHORIZED LABORATORIES. SPECIMEN TYPE NASAL 04/21/2024 7:06 PM COLLEGE TUTOR [facility] NASAL NASAL STRUCTURE / Unknown 04/21/2024 7:05 PM COLLEGE TUTOR us Cristine Wasserman MD MICROBIOLOGY - GENERAL ORDERABL ES Final Result Performing Organization Address City/[facility] Co de Phone Number [facility] [address] [place] [address], * INFLUENZA A & B (04/21/2024 7:05 PM COLLEGE TUTOR) SPECIMEN TYPE (INFLUENZA) NASAL 04/21/2024 7:06 PM COLLEGE TUTOR [facility] INFLUENZA A NEGATIVE NEGATIVE 04/21/2024 7:54 PM COLLEGE TUTOR [facility] INFLUENZA B NEGATIVE NEGATIVE 04/21/2024 7:54 PM COLLEGE TUTOR [facility] Comment: A NEGATIVE RESULT DOES NOT EXCLUDE INFLUENZA VIRUS INFECTION. IF INFLUENZA IS CIRCULATING IN YOUR COMMUNITY, A DIAGNOSIS OF INFLUENZA SHOULD BE CONSIDERED BASED ON A PATIENT'S CLINICAL PRESENTATION AND EMPIRIC ANTIVIRAL TREATMENT SHOULD BE CONSIDERED IF INDICATED. NASAL STRUCTURE / Unknown 04/21/2024 7:05 PM COLLEGE TUTOR Cristine Wasserman MD MICROBIOLOGY - GENERAL ORDERABL ES Final Result [facility] [address] [place] [address], from Last 3 Months Insurance [employer] Advance Directives * Full Code (Latest Code Status on File) Date Activated Date Inactivated Comments 04/21/2024 9:13 PM 05/06/2024 12:25 PM * Full Code Date Activated Date Inactivated Comments 01/16/2024 4:03 PM 01/20/2024 2:28 PM * Full Code Date Activated Date Inactivated Comments 09/16/2021 7:16 PM 09/19/2021 2:26 PM * Full Code Date Activated Date Inactivated Comments 08/16/2021 9:57 PM 08/20/2021 5:57 PM * Full Code Date Activated Date Inactivated Comments 05/25/2019 4:15 PM 05/29/2019 6:59 PM Care Teams Autistic Teacher Relationship Specialty Start Date End Date Kartik Simons MD [address] [place] [address] PCP - General FAMILY PRACTICE 05/13/19 Saray Meneses ANP- [address] [place] [address] Nurse Practitioner NURSE PRACTITIONER ADULT HEALTH 01/25/22
--- OUTSIDE RECORDS SUMMARY | 2024-06-05 11:54 | XMS_ITS | CONTINUITY OF CARE DOCUMENT ---
Author Name ricci wynne Address Unknown Organization [facility] Address [id number] [place] [address] [address] [place] [address] Phone [phone] Care Team Providers Care Executive Chairman Name Role Phone ricci wynne Unavailable Unavailable
--- OUTSIDE RECORDS SUMMARY | 2024-06-05 11:54 | XMS_ITS | Clinical Summary ---
Author Organization Unknown Care Team Providers Care Shade Bander Name Role Phone ERICK, ROSA Unavailable Unavailable SAMANTHA PHYSICAL THERAPIST, KEVIN Unavailable Unavailable DEMETRIUS SPEECH THERAPIST, MS, CCC/TAXI DANCER, JORDANA Un available Unavailable O'LULA DELPHI DEVELOPER, AZRA royal Unavailable CHANG REGISTERED NURSE, SUSY Unavailable Unavailable Payers Payer Name Policy Type Policy Number Effective Date Expira tion Date [employer] MEDICARE ADVANTAGE - EPISODIC Problems Condition Name Condition Details Condition Category Status Onset Date Resolution Date Last Treatment Date Treating Clinician Comments PNEUMONIA, UNSPECIFIED ORGANISM Active 04-25 00:00: 00 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 04-25 00:00: 00 HYPERTENSIVE HEART DISEASE WITH HEART FAILURE Active 04-25 00:00: 00 HEART FAILURE, UNSPECIFIED Active 05-14 00:00: 00 TYPE 2 DIABETES MELLITUS WITHOUT COMPLICATION S Active 04-25 00:00: 00 OTHER NONSPECIFIC ABNORMAL FINDING OF LUNG FIELD Active 04-25 00:00: 00 PERSONAL HISTORY OF NICOTINE DEPENDENCE Active 04-25 00:00: 00 [facility] (CURRENT) USE OF ASPIRIN Active 04-25 00:00: 00 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 Ordering Clinician Indication Dosage Frequency Signature (SIG) Comments Components albuterol sulfate HFA 90 mcg/actuati on aerosol inhaler 05-09 00:00: 00 Yes [id number] BREATHING 2 puff EVERY 4 HOURS 2 puff EVERY 4 HOURS (route: inhalation ) Med Classific ation: Respirato ry Therapy Agents Aspirin Childrens 81 mg chewable tablet 05-09 00:00: 00 Yes [id number] BLOOD CLOT PREVENTION 1 tablet ONCE DAILY 1 tablet ONCE DAILY (route: oral) Med Classific ation: Hematolog ical Agents budesonide 0.5 mg/2 mL suspension for nebulizatio n 05-09 00:00: 00 Yes [id number] BREATHING 2 mL TWICE DAILY 2 mL TWICE DAILY (route: inhalation ) Med Classific ation: Respirato ry Therapy Agents cefuroxime axetil 500 mg tablet 05-14 00:00: 00 05-20 23:59 :00 No [id number] ABT 1 tablet TWICE DAILY 1 tablet TWICE DAILY (route: oral) Med Classific ation: Anti-Infe ctive Agents Combivent Respimat 20 mcg-100 mcg/actuati on solution for inhalation 05-09 00:00: 00 Yes [id number] BREATHING 1 puff 4 TIMES DAILY 1 puff 4 TIMES DAILY (route: inhalation ) Med Classific ation: Respirato ry Therapy Agents furosemide 40 mg tablet 05-09 00:00: 00 Yes [id number] HTN/EDEMA 1 tablet 3 TIMES DAILY 1 tablet 3 TIMES DAILY (route: oral) Med Classific ation: Cardiovas cular Therapy Agents hydroxyzine HCl 25 mg tablet 05-09 00:00: 00 Yes [id number] MEMORY 1 tablet ONCE DAILY 1 tablet ONCE DAILY (route: oral) Med Classific ation: Central Nervous System Agents lovastatin 10 mg tablet 05-09 00:00: 00 Yes [id number] CHOLESTEROL 1 tablet ONCE DAILY 1 tablet ONCE DAILY (route: oral) Med Classific ation: Cardiovas cular Therapy Agents metformin 500 mg tablet 05-09 00:00: 00 Yes [id number] DM 1 tablet TWICE DAILY 1 tablet TWICE DAILY (route: oral) Med Classific ation: Endocrine metoprolol succinate ER 25 mg tablet,exte nded release 24 hr 05-09 00:00: 00 05-29 23:59 :00 No [id number] HTN 1 tablet ONCE DAILY 1 tablet ONCE DAILY (route: oral) Med Classific ation: Cardiovas cular Therapy Agents Miralax 17 gram/dose oral powder 05-09 00:00: 00 Yes [id number] BOWELS 17 g ONCE DAILY 17 g ONC E DAILY (route: oral) Med Classific ation: Gastroint estinal Therapy Agents potassium chloride ER 20 mEq tablet,exte nded release 05-09 00:00: 00 05-23 23:59 :00 No [id number] SUPPLEMENT 2 tablet ONCE DAILY 2 tablet ONCE DAILY (route: oral) Med Classific ation: Electroly te Balance-N utritiona l Products simethicone 125 mg capsule 05-09 00:00: 00 Yes [id number] GAS 1 capsule EVERY 6 HOURS 1 capsule EVERY 6 HOURS (route: oral) Med Classific ation: Gastroint estinal Therapy Agents trazodone 50 mg tablet 05-09 00:00: 00 Yes [id number] SLEEP 1 tablet AT BEDTIME 1 tablet AT BEDTIME (route: oral) Med Classific ation: Central Nervous System Agents oxygen gas for inhalation 05-09 00:00: 00 Yes [id number] BREATHING 2 Liter O2 - CONTINUOUS 2 Liter O2 - CONTINUOUS (route: inhalation ) Med Classific ation: Medical Supplies and Durable Medical Equipment (DME) azithromyci n 250 mg tablet 05-23 00:00: 00 05-23 23:59 :00 No [id number] INFECTION 2 tablet ONCE DAILY 2 tablet ONCE DAILY (route: oral) Med Classific ation: Anti-Infe ctive Agents azithromyci n 250 mg tablet 05-24 00:00: 00 05-27 23:59 :00 No [id number] INFECTION 1 tablet ONCE DAILY 1 tablet ONCE DAILY (route: oral) Med Classific ation: Anti-Infe ctive Agents cefuroxime axetil 500 mg tablet 05-23 00:00: 00 05-29 23:59 :00 No [id number] NA 1 tablet TWICE DAILY 1 tablet TWICE DAILY (route: oral) Med Classific ation: Anti-Infe ctive Agents metolazone 2.5 mg tablet 05-23 00:00: 00 Yes [id number] NA 1 tablet ONCE DAILY 1 tablet ONCE DAILY (route: oral) Med Classific ation: Cardiovas cular Therapy Agents potassium chloride ER 10 mEq tablet,exte nded release 05-23 00:00: 00 Yes [id number] NA 6 tablet ONCE DAILY 6 tablet ONCE DAILY (route: oral) Med Classific ation: Electroly te Balance-N utritiona l Products Immunizations Ordered Immunization Name Filled Immunization Name Date Status Comments Refusal Reason INFLUENZA, TIV (INACTIVATED) 2023-12-28 00:00:00 PNEUMOCOCCAL (PPV), PPV 2022-04-28 00:00:00 Vital Signs Vital Name Observation Time Observation Value Commen ts Temperature 2024-06-04 17:01:00.000 97.6 [degF] Temperature 2024-05-31 15:34:00.000 98.2 [degF] Temperature 2024-05-29 15:25:00.000 98.1 [degF] Temperature 2024-05-28 10:16:00.000 97.9 [degF] Temperature 2024-05-25 12:16:00.000 98 [degF] Temperature 2024-05-23 12:50:00.000 98.3 [degF] Temperature 2024-05-17 09:50:00.000 98.1 [degF] BMI (%) 2024-05-17 09:50:00.000 42 kg/m2 Height 2024-05-17 09:50:00.000 69 [in_us] Pulse 2024-06-04 17:01:00.000 84 /min Pulse 2024-05-31 15:34:00.000 84 /min Pulse 2024-05-29 15:25:00.000 72 /min Pulse 2024-05-28 10:16:00.000 92 /min Pulse 2024-05-25 12:16:00.000 72 /min Pulse 2024-05-23 12:50:00.000 84 /min Pulse 2024-05-17 09:50:00.000 78 /min O2 Saturation (%) 2024-06-04 17:01:00.000 98 % O2 Saturation (%) 2024-05-31 16:00:00.000 95 % O2 Saturation (%) 2024-05-29 15:25:00.000 95 % O2 Saturation (%) 2024-05-28 10:16:00.000 96 % O2 Saturation (%) 2024-05-25 12:16:00.000 95 % O2 Saturation (%) 2024-05-23 12:50:00.000 96 % O2 Saturation (%) 2024-05-17 09:50:00.000 98 % Respirations 2024-06-04 17:01:00.000 20 /min Respirations 2024-05-31 15:34:00.000 18 /min Respirations 2024-05-29 15:25:00.000 18 /min Respirations 2024-05-28 10:16:00.000 20 /min Respirations 2024-05-25 12:16:00.000 18 /min Respirations 2024-05-23 12:50:00.000 18 /min Respirations 2024-05-17 09:50:00.000 20 /min Weight (lbs) 2024-05-28 10:16:00.000 295.7 [lb_av] Weight (lbs) 2024-05-17 09:50:00.000 290 [lb_av] Systolic Blood Pressure 2024-06-04 17:01:00.000 118 mm [Hg] Systolic Blood Pressure 2024-05-31 15:34:00.000 112 mm [Hg] Systolic Blood Pressure 2024-05-29 15:25:00.000 104 mm [Hg] Systolic Blood Pressure 2024-05-28 10:16:00.000 90 mm[ Hg] Systolic Blood Pressure 2024-05-25 12:16:00.000 98 mm[ Hg] Systolic Blood Pressure 2024-05-23 12:50:00.000 98 mm[ Hg] Systolic Blood Pressure 2024-05-17 09:50:00.000 96 mm[ Hg] Diastolic Blood Pressure 2024-06-04 17:01:00.000 64 mm [Hg] Diastolic Blood Pressure 2024-05-31 15:34:00.000 66 mm [Hg] Diastolic Blood Pressure 2024-05-29 15:25:00.000 62 mm [Hg] Diastolic Blood Pressure 2024-05-28 10:16:00.000 60 mm [Hg] Diastolic Blood Pressure 2024-05-25 12:16:00.000 56 mm [Hg] Diastolic Blood Pressure 2024-05-23 12:50:00.000 58 mm [Hg] Diastolic Blood Pressure 2024-05-17 09:50:00.000 52 mm [Hg] Plan of Treatment Planned Activity Planned Date Details Comments Future Scheduled Test PHYSICAL T HERAPIST TO DEVELOP AND INSTRUCT ON HOME EXERCISE PROGRAM TO INCLUDE THERAPEUTIC EXERCISES DESIGNED TO RESTORE FUNCTIONAL RANGE OF MOTION, STRENGTH, BALANCE, NEUROMUSCULAR AND SENSORIMOTOR FUNCTION. [code = PHYSICAL THERAPIST TO DEVELOP AND INSTRUCT ON HOME EXERCISE PROGRAM TO INCLUDE THERAPEUTIC EXERCISES DESIGNED TO RESTORE FUNCTIONAL RANGE OF MOTION, STRENGTH, BALANCE, NEUROMUSCULAR AND SENSORIMOTOR FUNCTION.] Future Scheduled Test PHYSICAL T HERAPIST WILL INSTRUCT ON FUNCTIONAL TRANSFERS, BED MOBILITY AND FALL RISK REDUCTION STRATEGIES INCLUDING USE OF ADAPTIVE EQUIPMENT AND EDUCATION FOR HOME MODIFICATIONS TO MAXIMIZE SAFETY, IMPROVE FUNCTION AND DECREASE FALL RISK. [code = PHYSICAL THERAPIST WILL INSTRUCT ON FUNCTIONAL TRANSFERS, BED MOBILITY AND FALL RISK REDUCTION STRATEGIES INCLUDING USE OF ADAPTIVE EQUIPMENT AND EDUCATION FOR HOME MODIFICATIONS TO MAXIMIZE SAFETY, IMPROVE FUNCTION AND DECREASE FALL RISK.] Future Scheduled Test PHYSICAL T HERAPIST TO INSTRUCT ON GAIT TRAINING, BALANCE TRAINING, AND FALL RISK REDUCTION STRATEGIES INCLUDING USE OF ADAPTIVE EQUIPMENT AND EDUCATION FOR HOME MODIFICATIONS TO MAXIMIZE SAFETY, IMPROVE FUNCTION, AND DECREASED FALL RISK. [code = PHYSICAL THERAPIST TO INSTRUCT ON GAIT TRAINING, BALANCE TRAINING, AND FALL RISK REDUCTION STRATEGIES INCLUDING USE OF ADAPTIVE EQUIPMENT AND EDUCATION FOR HOME MODIFICATIONS TO MAXIMIZE SAFETY, IMPROVE FUNCTION, AND DECREASED FALL RISK.] Future Scheduled Test PHYSICAL T HERAPIST WILL ASSESS FOR COMPLICATIONS RELATED TO ANTICOAGULATION ANTIPLATELET USE AND INSTRUCT PATIENT/CAREGIVER ABOUT PRECAUTIONS TO FOLLOW AND SIGNS/SYMPTOMS TO REPORT. [code = PHYSICAL THERAPIST WILL ASSESS FOR COMPLICATIONS RELATED TO ANTICOAGULATION ANTIPLATELET USE AND INSTRUCT PATIENT/CAREGIVER ABOUT PRECAUTIONS TO FOLLOW AND SIGNS/SYMPTOMS TO REPORT.] Future Scheduled Test PATIENT RE QUIRED A DELAY IN THE HOME HEALTH START OF CARE/RESUMPTION OF CARE. THE DELAY(S) REQUIRED A NOTIFICATION AND APPROVAL BY THE PHYSICIAN OR ALLOWABLE PRACTITIONER WHICH WAS DONE ON 05/16/2024 THE NEW PHYSICIAN ORDERED START OF CARE/RESUMPTION OF CARE DATE(S) 05/17/2024 PATIENTS REASON(S) TO DELAY HOME HEALTH INCLUDED PATIENT REQUEST [code = PATIENT REQUIRED A DELAY IN THE HOME HEALTH START OF CARE/RESUMPTION OF CARE. THE DELAY(S) REQUIRED A NOTIFICATION AND APPROVAL BY THE PHYSICIAN OR ALLOWABLE PRACTITIONER WHICH WAS DONE ON 05/16/2024 THE NEW PHYSICIAN ORDERED START OF CARE/RESUMPTION OF CARE DATE(S) 05/17/2024 PATIENTS REASON(S) TO DELAY HOME HEALTH INCLUDED PATIENT REQUEST ] Future Scheduled Test FOR EACH O RDERED, IN-HOME OR TELEHEALTH VISIT, THE PHYSICAL THERAPIST WILL EVALUATE AND TREAT PATIENTS FUNCTIONAL DEFICITS. PHYSICAL THERAPIST WILL ASSESS AND INSTRUCT ON PAIN, FALL PREVENTION AND SAFETY, MENTAL/COGNITIVE/PSYCHOSOCIAL STATUS, MED MANAGEMENT, SKIN INTEGRITY, PRESSURE ULCER PREVENTION, AND INFECTION CONTROL/PREVENTION RELATED TO THE PRIMARY MEDICAL DIAGNOSIS AND ACTIVE CO-MORBIDITIES THAT MAY IMPACT THE PATIENTS OUTCOME. [code = FOR EACH ORDERED, IN-HOME OR TELEHEALTH VISIT, THE PHYSICAL THERAPIST WILL EVALUATE AND TREAT PATIENTS FUNCTIONAL DEFICITS. PHYSICAL THERAPIST WILL ASSESS AND INSTRUCT ON PAIN, FALL PREVENTION AND SAFETY, MENTAL/COGNITIVE/PSYCHOSOCIAL STATUS, MED MANAGEMENT, SKIN INTEGRITY, PRESSURE ULCER PREVENTION, AND INFECTION CONTROL/PREVENTION RELATED TO THE PRIMARY MEDICAL DIAGNOSIS AND ACTIVE CO-MORBIDITIES THAT MAY IMPACT THE PATIENTS OUTCOME.] Goal Patient Goal - G ET STRONGER, WALK BETTER, BE ABLE TO WALK AROUND OUTSIDE WHEN THE WEATHER GETS NICER Goal Provider Goal - PATIENT/CAREGIVER WILL RETURN DEMONSTRATE ACCURATE AND SAFE EXECUTION OF ESTABLISHED HOME EXERCISE PROGRAM TO IMPROVE ABILITY TO AMBULATE. Goal Provider Goal - PATIENT WILL DEMONSTRATE IMPROVED SAFETY AND ABILITY WITH TRANSFERS AND BED MOBILITY. Goal Provider Goal - PATIENT WILL DEMONSTRATE IMPROVED SAFETY AND ABILITY WITH GAIT, BALANCE, AND REDUCED FALL RISK. Goal Provider Goal - PATIENT/CAREGIVER WILL VERBALIZE UNDERSTANDING OF ANTICOAGULATION ANTIPLATELET COMPLICATIONS TO REPORT AND PRECAUTIONS TO FOLLOW BY END OF HOME HEALTH SERVICES. Goal Provider Goal - PATIENT WILL RECEIVE HOME HEALTH SERVICES ON ORDERED START DATE. Goal Provider Goal - PHYSICAL THERAPY EVALUATION WILL BE COMPLETED, AND A PLAN OF CARE WILL BE DEVELOPED FOR THE TREATMENT OF PATIENT DEFICITS RELATED TO PRIMARY DIAGNOSIS FOR HOME CARE EPISODE. PATIENT/CAREGIVER TO VERBALIZE AND DEMONSTRATE UNDERSTANDING OF ASSOCIATED DISEASE PROCESSES AND THEIR INFLUENCE ON FUNCTION IN THE HOME ENVIRONMENT AND MINIMIZE RISK OF HOSPITALIZATION. Progress Notes Progress Notes <paragraph>[Visit Date: 2024 by CLARENCE PICHARDO DELPHI DEVELOPER]:</paragraph><paragraph>PATIENT'S SON NAKUL REPORTS HIS LEGS STILL WEEP BUT HE IS DOWN TO 292, CONTINUES TO WEIGH DAILY. STILL DOESNT KEEP LEGS ELEVATED TO HELP WITH SWELLING. SON CONTINUES TO ENCOURAGE HIM TO DO EXERCISES BUT IS STUBBORN. INSTRUCTED IN SEATED THER EX X10-15 REPS FOR LE STRENGTHENING WITH MIN CUES TO SLOW DOWN TO PERFORM THRU FULL ROM, USING RED THERABAND FOR ELBOW FLEXION, LEG PRESSES HIP ABD. STANDING HIP FLEXION X10 REPS. INSTRUCTED IN IMPORTANCE OF PERFORMING HEP 2X A DAY HE V/U.GT TRAINING WITH WALKER 50'X2 CGA/SBA, SAFETY WITH O2 LINE FOR IMPROVING STEP LENGTH, MILD DYSPNEA WITH CUES FOR PURSED LIP BREATHING. PATIENT INSTRUCTED TO ELEVATE LE'S PERFORMED ANKLE PUMPS BUT WOULD NOT KEEP LEGS ELEVATED. PATIENT RECEIVING SKILLED THERAPY WITH PRIMARY DIAGNOSIS OF PNEUMONIA WITH DECREASED ENDURANCE STRENGTH.</paragraph> Encounters Start Date/Time End Date/Time Encounter Type Admission Type Attending [facility] Care Department Encounter ID Discharge Date Discharge Status Discharge Condition Discharge Reason Percent Goals Met 2024-05-17 00:00:00 2024-07-15 00:00:00 Outpatient NEW ADMISSION [facility] [id number] 72.22
--- OUTSIDE RECORDS SUMMARY | 2024-06-05 11:54 | XMS_ITS | Encounter Summary ---
Author Organization [facility] Address [address] [place] [address] Care Team Providers Care Vegetable Harvest Machine Operator Name Role Phone Kartik Simons MD Primary Care Provider [phone] Saray Meneses ANP- Unavailable + Encounter Details Date Type Department Care Team (Late Contact Info) Description 09/30/2018 Abstract [facility] CONVERSION [address] [place] [address] , Generic Conversion, Social History Tobacco Use Types Packs/Day Years Used Date Smoking Tobacco: Never Assessed Sex and Gender Information Value Date Recorded Sex Assigned at Male 05/14/2024 10:39 AM SENIOR PLANNER Legal Sex Male 6:05 PM CDT Gender Identity Male 05/25/2019 4:09 PM SENIOR PLANNER Sexual Orientation Not on file documented as of this encounter Plan of Treatment Upcoming Encounters Date Type Department Care Team (Late Contact Info) Description 06/08/2024 10:00 AM SENIOR PLANNER Appointment [facility] [address] [place] [address] Caitlin Godoy PA [address] [place] [address] documented as of this encounter Visit Diagnoses Not on filedocumented in this encounter Additional Health Concerns Infection Onset Date Last Indicated Resolved Time COVID-19 Rule Out 08/16/2021 08/16/2021 08/16/2021 6:10 PM CDT COVID-19 Rule Out 01/16/2024 01/16/2024 01/16/2024 1:48 AM CDT COVID-19 Rule Out 04/21/2024 04/21/2024 04/21/2024 7:55 PM SENIOR PLANNER documented as of this encounter Care Teams Vegetable Harvest Machine Operator Relationship Specialty Start Date End Date Kartik Simons MD [address] [place] [id number] PCP - General FAMILY PRACTICE 05/13/19 Saray Meneses ANP- [address] [place] [address] Nurse Practitioner NURSE PRACTITIONER ADULT HEALTH 01/25/22 documented as of this encounter
--- OUTSIDE RECORDS SUMMARY | 2024-06-05 11:54 | XMS_ITS ---
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) 05/07/2024 05/07/2024 Metoprolol Succinate Oral Capsule ER 24 Hour Sprinkle 25 MG 25 mg Give 25 mg by mouth in the morning related to ESSENTIAL (PRIMARY) HYPERTENSION (I10) 05/07/2024 05/08/2024 Lovastatin Oral Tablet 10 MG 10 mg Give 10 mg by mouth in the morning related to HYPERLIPIDEMIA, UNSPECIFIED (E78.5) 05/07/2024 05/08/2024 Ipratropium-Albutero l Inhalation Aerosol Solution 20-100 MCG/ACT 1 6 h 1 puff inhale orally four times a day related to 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) 05/07/2024 05/08/2024 Potassium Chloride Ivania ER Oral Tablet Extended Release 20 MEQ 20 meq Give 20 mEq by mouth in the morning related to HEART FAILURE, UNSPECIFIED (I50.9) 05/07/2024 05/07/2024 traZODone HCl Oral Tablet 50 MG 50 mg Give 50 mg by mouth as needed for insomnia at bed time 05/06/2024 05/07/2024 metFORMIN HCl Oral Tablet 500 MG 500 mg 12 h Give 500 mg by mouth two times a day related to TYPE 2 DIABETES MELLITUS WITH UNSPECIFIED COMPLICATIONS (E11.8) take with meals 05/06/2024 05/08/2024 Albuterol Sulfate HFA Inhalation Aerosol Solution 108 (90 Base) MCG/ACT 2 2 puff inhale orally every 4 hours as needed for wheezing related to 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) 05/06/2024 05/08/2024 Polyethylene Glycol Powder 17 Give 17 gram by mout h every 24 hours as needed for constipation 05/06/2024 05/08/2024 Furosemide Oral Tablet 40 MG 120 mg Give 120 mg by mouth in the morning related to HEART FAILURE, UNSPECIFIED (I50.9) 05/07/2024 05/08/2024 Aspirin EC Tablet Delayed Release 81 MG 1 {tbl} Give 1 tablet by mouth in the morning related to UNSPECIFIED ATRIAL FIBRILLATION (I48.91) 05/07/2024 05/08/2024 HydrOXYzine HCl Tablet 25 MG 1 {tbl} Give 1 tablet by mouth every 8 hours as needed for Itching related to UNSPECIFIED DEMENTIA, UNSPECIFIED SEVERITY, WITHOUT BEHAVIORAL DISTURBANCE, PSYCHOTIC DISTURBANCE, MOOD DISTURBANCE, AND ANXIETY (F03.90) 05/06/2024 05/08/2024 Budesonide Inhalation Suspension 0.5 MG/2ML 2 mL 12 h 2 ml inhale orally via nebulizer two times a day related to 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) 05/08/2024 05/08/2024 Potassium Chloride Ivania ER Oral Tablet Extended Release 20 MEQ 2 {tbl} Give 2 tablet by mouth in the morning related to HEART FAILURE, UNSPECIFIED (I50.9) 05/08/2024 05/08/2024 traZODone HCl Oral Tablet 50 MG 1 {tbl} Give 1 tablet by mouth at bedtime for Insomnia 05/08/2024 05/08/2024 Medications Administered Medication Dose Frequency Status Start Date End Date Simethicone Oral Capsule 125 MG 1 {Capsule} 05/06/2024 Budesonide Inhalation Suspension 0.5 MG/2ML 2 mL 12 h 05/07/2024 Metoprolol Succinate Oral Capsule ER 24 Hour Sprinkle 25 MG 25 mg 05/08/2024 Lovastatin Oral Tablet 10 MG 10 mg 05/08/2024 Ipratropium-Albuterol Inhalation Aerosol Solution 20-100 MCG/ACT 1 6 h 05/08/2024 Potassium Chloride Ivania ER Oral Tablet Extended Release 20 MEQ 20 meq 05/07/2024 traZODone HCl Oral Tablet 50 MG 50 mg 05/06/2024 metFORMIN HCl Oral Tablet 500 MG 500 mg 12 h Refer to Progress Notes 05/08/2024 Albuterol Sulfate HFA Inhalation Aerosol Solution 108 (90 Base) MCG/ACT 2 05/06/2024 Polyethylene Glycol Powder 17 05/06/2024 Furosemide Oral Tablet 40 MG 120 mg 05/08/2024 Aspirin EC Tablet Delayed Release 81 MG 1 {tbl} 05/08/2024 HydrOXYzine HCl Tablet 25 MG 1 {tbl} 05/06/2024 Budesonide Inhalation Suspension 0.5 MG/2ML 2 mL 12 h 05/08/2024 Potassium Chloride Ivania ER Oral Tablet Extended Release 20 MEQ 2 {tbl} 05/08/2024 traZODone HCl Oral Tablet 50 MG 1 {tbl} 05/08/2024 Problems Problem Status Start Date End Date PNEUMONITIS DUE TO INHALATIO N OF FOOD AND VOMIT (Primary) (J69.0 - ICD-10-CM) ACTIVE 05/06/2024 TYPE 2 DIABETES MELLITUS WIT H UNSPECIFIED COMPLICATIONS (E11.8 - ICD-10-CM) ACTIVE 05/06/2024 DYSPHAGIA, UNSPECIFIED (R13.10 - ICD-10-CM) ACTIVE 05/06/2024 CHRONIC OBSTRUCTIVE PULMONAR Y DISEASE WITH (ACUTE) LOWER RESPIRATORY INFECTION (J44.0 - ICD-10-CM) ACTIVE 05/06/2024 UNSPECIFIED ATRIAL FIBRILLATION (I48.91 - ICD-10-CM) A CTIVE 05/06/2024 BODY MASS INDEX [BMI]40.0-44.9, ADULT (Z68.41 - ICD-10 -CM) ACTIVE 05/06/2024 UNSPECIFIED DEMENTIA, UNSPEC IFIED SEVERITY, WITHOUT BEHAVIORAL DISTURBANCE, PSYCHOTIC DISTURBANCE, MOOD DISTURBANCE, AND ANXIETY (F03.90 - ICD-10-CM) ACTIVE 05/06/2024 HYPERKALEMIA (E87.5 - ICD-10-CM) ACTIVE 05/06/19 HYPERLIPIDEMIA, UNSPECIFIED (E78.5 - ICD-10-CM) ACTIVE 05/06/2024 CHRONIC RESPIRATORY FAILURE, 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 with no home health services [facility] 05/06/2024 11:47 am EST - 05/08/2024 05:36 pm EST Social History Vital Signs Vital Sign Reading Time Taken oxygenSaturation 97 % 05/08/2024 03:5 6 pm EST oxygenSaturation 97 % 05/08/2024 10:3 8 am EST oxygenSaturation 97 % 05/08/2024 10:3 8 am EST oxygenSaturation 97 % 05/08/2024 10:3 8 am EST oxygenSaturation 97 % 05/08/2024 09:0 9 am EST oxygenSaturation 96 % 05/08/2024 12:4 9 am EST oxygenSaturation 96 % 05/07/2024 11:4 7 pm EST oxygenSaturation 96 % 05/07/2024 05:2 4 pm EST oxygenSaturation 97 % 05/07/2024 11:1 0 am EST oxygenSaturation 96 % 05/07/2024 01:4 7 am EST oxygenSaturation 99 % 05/06/2024 10:4 4 pm EST oxygenSaturation 94 % 05/06/2024 10:4 0 pm EST oxygenSaturation 98 % 05/06/2024 05:1 8 pm EST weight 283 [lb_av] 05/08/2024 02:35 pm EST painLevel 0 {score} 05/08/2024 09:23 am EST painLevel 0 {score} 05/08/2024 12:34 am EST painLevel 0 {score} 05/07/2024 08:27 pm EST painLevel 0 {score} 05/07/2024 05:24 pm EST painLevel 0 {score} 05/07/2024 11:10 am EST painLevel 0 {score} 05/06/2024 05:18 pm EST heartrate 83 /min 05/08/2024 09:09 am EST heartrate 83 /min 05/08/2024 12:49 am EST heartrate 77 /min 05/07/2024 04:17 pm EST heartrate 80 /min 05/07/2024 11:48 am EST heartrate 70 /min 05/07/2024 03:22 am EST heartrate 78 /min 05/06/2024 10:44 pm EST heartrate 72 /min 05/06/2024 10:40 pm EST respirations 19 /min 05/08/2024 09:09 am EST respirations 20 /min 05/08/2024 12:49 am EST respirations 20 /min 05/07/2024 04:17 pm EST respirations 18 /min 05/07/2024 11:48 am EST respirations 18 /min 05/07/2024 03:22 am EST respirations 20 /min 05/06/2024 10:44 pm EST respirations 20 /min 05/06/2024 10:40 pm EST systolicValue 132 mm[Hg] 05/08/2024 09:09 am EST diastolicValue 72 mm[Hg] 05/08/2024 09:09 am EST systolicValue 104 mm[Hg] 05/08/2024 12:49 am EST diastolicValue 51 mm[Hg] 05/08/2024 12:49 am EST systolicValue 141 mm[Hg] 05/07/2024 04:17 pm EST diastolicValue 90 mm[Hg] 05/07/2024 04:17 pm EST systolicValue 122 mm[Hg] 05/07/2024 11:48 am EST diastolicValue 78 mm[Hg] 05/07/2024 11:48 am EST systolicValue 117 mm[Hg] 05/07/2024 03:22 am EST diastolicValue 62 mm[Hg] 05/07/2024 03:22 am EST systolicValue 120 mm[Hg] 05/06/2024 10:44 pm EST diastolicValue 64 mm[Hg] 05/06/2024 10:44 pm EST systolicValue 126 mm[Hg] 05/06/2024 10:40 pm EST diastolicValue 70 mm[Hg] 05/06/2024 10:40 pm EST temperature 98.4 [degF] 05/08/2024 09:09 am EST temperature 97.7 [degF] 05/08/2024 12:49 am EST temperature 97.6 [degF] 05/07/2024 04:17 pm EST temperature 97.1 [degF] 05/07/2024 11:48 am EST temperature 97.5 [degF] 05/07/2024 03:22 am EST temperature 97.2 [degF] 05/06/2024 10:44 pm EST temperature 97.4 [degF] 05/06/2024 10:40 pm EST height 70 [in_us] 05/06/2024 04:19 pm EST height 70 [in_us] 05/06/2024 04:17 pm EST
[2024-06-05 11:59] LABS: Hemoglobin A1C 6.5 % (<5.7)
== END 2024-06-05 10:30 | disposition home or self-care (01) ==
LOC: CHSLAB 10:38
PROVIDERS: Visit Provider Family Medicine
DX: I50.9 Heart failure, unspecified (principal); E11.9 Type 2 diabetes mellitus without complications; J44.9 Chronic obstructive pulmonary disease, unspecified
CPT/HCPCS: 36415; 80048; 80061; 83036; 83721